=== PATIENT | male | born 1935 | race Caucasian/White ===

== ENCOUNTER → 2016-05-03 | Outpatient (CLI) | payer MEDICARE, BC | LOC: GMAH 12:25 | PROVIDERS: ATTEND Family Medicine | DX: E78.2 Mixed hyperlipidemia (principal); Z12.5 Encounter for screening for malignant neoplasm of prostate | CPT/HCPCS: 84443; 84550; G0103 ==

== ENCOUNTER 2016-08-15 18:44 | Emergency (ER) | payer MEDICARE, BC ==
[2016-08-15] MEDS ORDERED: IPRATROPIUM/ALBUTEROL 3 ML VIAL NEB ONE (19:15)
[2016-08-15 19:21] VITALS: BP 135/75; TEMP 98.7
--- NOTE | 2016-08-15 20:03 | RAD ---
EXAM: Two view chest. INDICATION: Chest pain. COMPARISON: Chest x-ray: 03/13/2016. FINDINGS: Cardiac silhouette: Unremarkable. Radha: Unremarkable. Lobar consolidation: None. Pleural effusion: None. Pneumothorax: None. Other: None. Bones: Unremarkable. Other: None. IMPRESSION: 1. No acute cardiopulmonary process. Electronically signed by: Chuck Quintero MD 08/15/2016 8:02 PM CDT
[2016-08-15] MEDS ORDERED: HYDROcodone 10MG/APAP 325MG 1 EA TAB PO ONE (20:56)
[2016-08-15] MEDS ORDERED: levoFLOXacin 500 MG TAB PO ONE (21:03)
[2016-08-15] MEDS ORDERED: predniSONE 20 MG TAB PO ONE (21:03)
--- NOTE | 2016-08-15 21:15 | ED.PDOC ---
History of Present Illness - General Chief Complaint: Headache Stated Complaint: cough, congestion, sinus, headache for 4 wks Time Seen by Provider: 08/15/16 19:10 Source: patient Exam Limitations: no limitations - History of Present Illness Initial Comments: the patient is an 81-year-old male presenting to the emergency room secondary to persistent cough and sinus pressure. He reports that he's had a cough for at least a month and has undergone a round of antibiotics with clarithromycin and received a steroid shot at the start of it. He does have a known history of COPD and does take breathing treatments. He is not oxygen dependent. His cough is minimally productive. He has no chest pain. He has had no fevers. He has no shortness of breath except when he is coughing. No syncope or near-syncope. No chest pain. Timing/Duration: constant Severity: moderate Improving Factors: nothing Worsening Factors: nothing Associated Symptoms: malaise Allergies/Adverse Reactions: Allergies NO KNOWN ALLERGY Allergy (Verified 08/15/16 19:21) Home Medications: Ambulatory Orders Aspirin [Baby Aspirin] 81 mg PO DAILY 03/13/16 Atorvastatin Calcium [Lipitor] 40 mg PO BEDTIME 03/13/16 Clopidogrel Bisulfate [Plavix] 75 mg PO DAILY 03/13/16 Lisinopril 20 mg PO DAILY 03/13/16 Montelukast Sodium [Singulair] 10 mg PO DAILY #14 tab 08/15/16 levoFLOXacin [Levaquin] 500 mg PO DAILY #10 tab 08/15/16 predniSONE [Prednisone] 20 mg PO DAILY #5 tab 08/15/16 Review of Systems - Review of Systems Constitutional: States: malaise EENTM: States: nose congestion Respiratory: States: cough Cardiology: States: no symptoms reported Gastrointestinal/Abdominal: States: no symptoms reported Genitourinary: States: no symptoms reported Musculoskeletal: States: no symptoms reported Skin: States: no symptoms reported Neurological: States: no symptoms reported Endocrine: States: no symptoms reported Hematologic/Lymphatic: States: no symptoms reported All other Systems: No Change from Baseline Past Medical History (General) - Patient Medical History Hx Seizures: No Hx Stroke: No Hx Dementia: No Hx Asthma: No Hx of COPD: No Hx Cardiac Disorders: No Hx Congestive Heart Failure: No Hx Pacemaker: No Hx Hypertension: Yes Hx Thyroid Disease: No Hx Diabetes: No Hx Gastroesophageal Reflux: No Hx Renal Disease: No Hx Cancer: No Hx of HIV: No Hx Hepatitis C: No Hx MRSA: No Surgical History: other - Vaccination History Hx Tetanus, Diphtheria Vaccination: No Hx Influenza Vaccination: No Hx Pneumococcal Vaccination: Yes Immunizations Up to Date: No - Social History Hx Tobacco Use: No Hx Chewing Tobacco Use: No Hx Alcohol Use: No Hx Substance Use: No Hx Substance Use Treatment: No Hx Depression: No Feels Threatened In Home Enviroment: No Feels Threatened In a Relationship: No Hx Physical Abuse: No Hx Emotional Abuse: No Hx Suspected Abuse: No Family Medical History - Family History Mother Family History: No Known Living Status: Physical Exam - Physical Exam General Appearance: Alert, Comfortable, No apparent distress Eye Exam: bilateral normal Ears, Nose, Throat: nasal congestion, other - the patient has pressure over bilateral maxillary sinuses. Nares are red with clear rhinorrhea and there is significant edema Neck: non-tender, full range of motion, supple, normal inspection Respiratory: chest non-tender, lungs clear, normal breath sounds, no respiratory distress, no accessory muscle use Cardiovascular/Chest: normal peripheral pulses, no edema, other - regular rate Peripheral Pulses: radial,right: 2+, radial,left: 2+ Gastrointestinal/Abdominal: non tender, soft Back Exam: normal inspection, no CVA tenderness, no vertebral tenderness Extremity: normal range of motion, non-tender, normal inspection, no pedal edema , normal capillary refill Neurologic: alert, normal mood/affect, oriented x 3 Skin Exam: normal color Comments: Vital Signs - 24 hr 08/15/16 08/15/16 19:00 19:16 Temperature 98.7 F Pulse Rate [ 66 monitor] Respiratory 18 18 Rate Blood Pressure 135/75 [Left Arm] O2 Sat by Pulse 96 Oximetry Progress - Progress Progress: 08/15/16 21:15 the patient is an 81-year-old male presenting with what appears to be acute on chronic bronchitis with bilateral maxillary sinusitis. The patient will be placed on prednisone 20 mg daily for 5 days. He needs to picking supervisor some [id number] Nasacort and use 1 spray per nostril twice a day. The patient is going to be placed on Levaquin 500 milligrams daily for 10 days. He needs to keep well hydrated. He needs to hold his cholesterol medication while taking this antibiotic. He is also going to be placed on Singulair 10 mg daily for 2 weeks. He needs to continue using his nebulizer treatments. He needs to keep his follow-up with his primary care doctor on Tuesday. He needs to return to the emergency room for any acute worsening. X-ray showed no evidence of pneumonia, only changes of COPD. Departure - Departure Disposition: Discharge to Home or Self Care Departure Forms: ED Discharge - Pt. Copy, Patient Portal Self Enrollment Referrals: Uriel Mota MD [Primary Care Provider] - 1-2 Weeks Prescriptions: levoFLOXacin [Levaquin] 500 mg PO DAILY #10 tab Montelukast Sodium [Singulair] 10 mg PO DAILY #14 tab predniSONE [Prednisone] 20 mg PO DAILY #5 tab Home Medications: Ambulatory Orders Aspirin [Baby Aspirin] 81 mg PO DAILY 03/13/16 Atorvastatin Calcium [Lipitor] 40 mg PO BEDTIME 03/13/16 Clopidogrel Bisulfate [Plavix] 75 mg PO DAILY 03/13/16 Lisinopril 20 mg PO DAILY 03/13/16 Montelukast Sodium [Singulair] 10 mg PO DAILY #14 tab 08/15/16 levoFLOXacin [Levaquin] 500 mg PO DAILY #10 tab 08/15/16 predniSONE [Prednisone] 20 mg PO DAILY #5 tab 08/15/16 Additional Instructions: the patient is an 81-year-old male presenting with what appears to be acute on chronic bronchitis with bilateral maxillary sinusitis. The patient will be placed on prednisone 20 mg daily for 5 days. He needs to picking supervisor some [id number] Nasacort and use 1 spray per nostril twice a day. The patient is going to be placed on Levaquin 500 milligrams daily for 10 days. He needs to keep well hydrated. He needs to hold his cholesterol medication while taking this antibiotic. He is also going to be placed on Singulair 10 mg daily for 2 weeks. He needs to continue using his nebulizer treatments. He needs to keep his follow-up with his primary care doctor on Tuesday. He needs to return to the emergency room for any acute worsening. X-ray showed no evidence of pneumonia, only changes of COPD.
[2016-08-15] MEDS ORDERED: MONTELUKAST SODIUM 10 MG TAB ONE (21:20)
[2016-08-15 22:29] VITALS: O2SAT 99
[2016-08-16] MEDS ORDERED: MONTELUKAST SODIUM 10 MG TAB PO ONE (21:03)
== END 2016-08-15 21:41 | disposition home or self-care (01) ==
LOC: ER 18:44
DX: J20.9 Acute bronchitis, unspecified (principal); J01.00 Acute maxillary sinusitis, unspecified; I10 Essential (primary) hypertension; Z79.82 Long term (current) use of aspirin; Z79.899 Other long term (current) drug therapy
CPT/HCPCS: 71020; 94640; J7512; J7620

== ENCOUNTER → 2016-11-18 | Outpatient (CLI) | payer MEDICARE, BC | END | disposition home or self-care (01) | LOC: GMAH 17:17 | PROVIDERS: ATTEND Family Medicine | DX: K92.1 Melena (principal) ==

== ENCOUNTER → 2016-12-06 | Outpatient (CLI) | payer MEDICARE, BC ==
--- NOTE | 2016-12-06 15:28 | CT ---
EXAM DESCRIPTION: Abdomen w/Contrast CLINICAL HISTORY: SPLENOMEGALY COMPARISON: None Available TECHNIQUE: CT of the abdomen only was performed with IV contrast. This exam was performed according to our departmental dose-optimization program, which includes automated exposure control, adjustment of the mA and/or kV according to patient size and/or use of iterative reconstruction technique. FINDINGS: There is some dependent atelectasis in the lung bases. No pneumoperitoneum, ascites or adenopathy. No abdominal aortic aneurysm. There is mild central intrahepatic biliary duct dilation. The liver contour is smooth, and there is no liver mass. No calcified gallstone or extra hepatic biliary duct dilation. The pancreatic duct is not dilated, and there is no mass or evidence of pancreatitis. The spleen is slightly enlarged, measuring up proximally 14 cm in length. There is a small left renal cyst. The kidneys and adrenals are otherwise unremarkable. Moderate amount of colonic stool and gas. No dilated small bowel loops. No concerning bone lesion. There are degenerative changes in the lumbar spine multiple levels. IMPRESSION: Splenomegaly without focal splenic lesion or ascites. Mild central intrahepatic biliary duct dilation, nonspecific. No calcified gallstone, but ultrasound may be helpful for further evaluation if clinically suspicious of biliary disease. No pancreatic mass or evidence of pancreatitis. Electronically signed by: Wilmer Kurtz MD 12/06/2016 3:27 PM CDT Workstation: [facility]
== END | disposition home or self-care (01) ==
LOC: CT 08:50
PROVIDERS: ATTEND Internal Medicine Hematology & Oncology
DX: R16.1 Splenomegaly, not elsewhere classified (principal)

== ENCOUNTER → 2016-12-30 | Outpatient (CLI) | payer MEDICARE, BC | END | disposition home or self-care (01) | LOC: GMAH 10:33 | PROVIDERS: ATTEND Family Medicine | DX: D47.3 Essential (hemorrhagic) thrombocythemia (principal); E53.8 Deficiency of other specified B group vitamins ==

== ENCOUNTER → 2017-03-28 | Outpatient (CLI) | payer MEDICARE, BC | END | disposition home or self-care (01) | LOC: GMAH 10:42 | PROVIDERS: ATTEND Family Medicine | DX: D47.3 Essential (hemorrhagic) thrombocythemia (principal); E53.8 Deficiency of other specified B group vitamins ==

== ENCOUNTER → 2018-01-12 | Outpatient (CLI) | payer MEDICARE, BC | LOC: GMAH 10:30 | PROVIDERS: ATTEND Family Medicine | DX: I10 Essential (primary) hypertension (principal); E78.2 Mixed hyperlipidemia; Z12.5 Encounter for screening for malignant neoplasm of prostate | CPT/HCPCS: 84443; 84550; G0103 ==

== ENCOUNTER → 2018-07-18 | Outpatient (CLI) | payer MEDICARE, BC | LOC: GMAH 10:48 | PROVIDERS: ATTEND Family Medicine | DX: E03.9 Hypothyroidism, unspecified (principal) ==

== ENCOUNTER → 2018-08-14 | Outpatient (CLI) | payer MEDICARE, BC | LOC: LAB.O 10:00 | PROVIDERS: ATTEND Internal Medicine Hematology & Oncology | DX: D45 Polycythemia vera (principal) ==

== ENCOUNTER → 2018-11-24 | Outpatient (CLI) | payer MEDICARE, BC | LOC: LAB.O 09:42 | PROVIDERS: ATTEND Internal Medicine Hematology & Oncology | DX: D75.1 Secondary polycythemia (principal); D47.3 Essential (hemorrhagic) thrombocythemia ==

== ENCOUNTER → 2018-12-25 | Outpatient (CLI) | payer MEDICARE, BC | LOC: LAB.O 09:09 | PROVIDERS: ATTEND Internal Medicine Hematology & Oncology | DX: D45 Polycythemia vera (principal) ==

== ENCOUNTER → 2019-01-16 | Outpatient (CLI) | payer MEDICARE, BC | LOC: GMA MATASK 10:45 | PROVIDERS: ATTEND Family Medicine | DX: E03.9 Hypothyroidism, unspecified (principal); E78.2 Mixed hyperlipidemia; I10 Essential (primary) hypertension; Z12.5 Encounter for screening for malignant neoplasm of prostate | CPT/HCPCS: 84443; 84550; G0103 ==

== ENCOUNTER → 2019-02-20 | Outpatient (CLI) | payer MEDICARE, BC | LOC: LAB.O 08:44 | PROVIDERS: ATTEND Internal Medicine Hematology & Oncology | DX: D75.1 Secondary polycythemia (principal); D47.3 Essential (hemorrhagic) thrombocythemia ==

== ENCOUNTER → 2019-04-20 | Outpatient (CLI) | payer BC, MEDICARE | LOC: LAB.O 12:04 | PROVIDERS: ATTEND Internal Medicine Hematology & Oncology | DX: D45 Polycythemia vera (principal) ==

== ENCOUNTER → 2019-08-20 | Outpatient (CLI) | payer MEDICARE, BC | LOC: LAB.O 08:45 | PROVIDERS: ATTEND Internal Medicine Hematology & Oncology | DX: D75.1 Secondary polycythemia (principal) ==

== ENCOUNTER → 2019-10-18 | Outpatient (CLI) | payer MEDICARE, BC | LOC: GMA MATASK 10:36 | PROVIDERS: ATTEND Family Medicine | DX: R97.20 Elevated prostate specific antigen [PSA] (principal); D47.3 Essential (hemorrhagic) thrombocythemia; E78.2 Mixed hyperlipidemia ==

== ENCOUNTER → 2019-12-21 | Outpatient (CLI) | payer MEDICARE, BC | LOC: LAB.O 09:00 | PROVIDERS: ATTEND Internal Medicine Hematology & Oncology | DX: D75.1 Secondary polycythemia (principal) ==

== ENCOUNTER 2020-05-26 12:16 | Emergency (ER) | payer MEDICARE, BC ==
[2020-05-26 12:37] VITALS: TEMP 99.3
[2020-05-26] MEDS ORDERED: SILVER SULFADIAZINE 1 % 25 GM TUBE TOP ONE (12:53)
[2020-05-26] MEDS ORDERED: TETANUS,DIPHTHERIA,PERTUSSIS 1 EA SYG IM ONE (13:00)
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
[2020-05-26 13:43] VITALS: BP 110/87; O2SAT 97
== END 2020-05-26 13:40 | disposition home or self-care (01) ==
LOC: ER 12:16
DX: T25.211A Burn of second degree of right ankle, initial encounter (principal); T31.0 Burns involving less than 10% of body surface; I10 Essential (primary) hypertension; X03.8XXA Other exposure to controlled fire, not in building or structure, initial encounter; Y92.9 Unspecified place or not applicable; Z79.82 Long term (current) use of aspirin; Z79.899 Other long term (current) drug therapy; Z23 Encounter for immunization

== ENCOUNTER 2020-06-06 11:00 | Emergency (ER) | payer MEDICARE, BC ==
[2020-06-06] MEDS ORDERED: SILVER SULFADIAZINE 1 % 25 GM TUBE TOP ONE (11:57)
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
--- NOTE | 2020-06-06 15:14 | ED.PDOC ---
History of Present Illness - General Chief Complaint: Trauma Stated Complaint: s/p fall,left rib pain Time Seen by Provider: 06/06/20 11:34 Source: patient Exam Limitations: no limitations - History of Present Illness Initial Comments: The patient is a 85-year-old male presented emergency room secondary to having tripped and fallen on asphalt yesterday. He landed and managed to injure his left anterior chest wall and he somehow hit the back of his head. No loss of consciousness. He does take a blood thinner. No pain elsewhere. He moves all extremities well and is able to ambulate in. Vital signs are stable. Timing/Duration: 24 hours Severity: moderate Improving Factors: immobilization Worsening Factors: movement Associated Symptoms: chest pain Allergies/Adverse Reactions: Allergies NO KNOWN ALLERGY Allergy (Verified 05/26/20 12:40) Home Medications: Ambulatory Orders Atorvastatin Calcium [Lipitor] 40 mg PO BEDTIME 03/13/16 Clopidogrel Bisulfate [Plavix] 75 mg PO DAILY 03/13/16 levoFLOXacin [Levaquin] 500 mg PO DAILY #10 tab 08/15/16 HYDROcodone 5MG/APAP 325MG [Mccamey 5/325] 1 tablet PO Q6H 4 Days #16 tab 05/26/20 SILVER SULFADIAZINE 1 % 25gm [Silvadene Cream 25gm] 1 applic TOP BID #1 tube 05/26/20 Egxjykbalxiqu-Yirc-Akyoukbnmk [Fioricet] 1 ea PO Q8H PRN #21 tab 06/06/20 Cilostazol 100 mg PO DAILY 06/06/20 Famotidine [Pepcid Tab] 20 mg PO DAILY 06/06/20 Hydroxyurea 500 mg PO DAILY 06/06/20 Levothyroxine Sodium 50 mcg PO DAILY 06/06/20 Lisinopril & Hydrochlorothiazi [Lisinopril/Hydrochlorothi 20-25 mg] 1 tab PO DAILY 06/06/20 Tramadol HCl 50 mg PO Q8HR PRN 3 Days #10 tab 06/06/20 Review of Systems - Review of Systems Constitutional: States: no symptoms reported EENTM: States: no symptoms reported Respiratory: States: no symptoms reported Cardiology: States: chest pain Gastrointestinal/Abdominal: States: no symptoms reported Genitourinary: States: no symptoms reported Musculoskeletal: States: see HPI Skin: States: no symptoms reported Neurological: States: headache Endocrine: States: no symptoms reported All other Systems: No Change from Baseline Past Medical History (General) - Patient Medical History Hx Seizures: No Hx Stroke: No Hx Dementia: No Hx Asthma: No Hx of COPD: No Hx Cardiac Disorders: No Hx Congestive Heart Failure: No Hx Pacemaker: No Hx Hypertension: Yes Hx Thyroid Disease: No Hx Diabetes: No Hx Gastroesophageal Reflux: No Hx Renal Disease: No Hx Cancer: No Hx of HIV: No Hx Hepatitis C: No Hx MRSA: No - Vaccination History Hx Tetanus, Diphtheria Vaccination: No Hx Influenza Vaccination: Yes Hx Pneumococcal Vaccination: Yes - Social History Hx Tobacco Use: No Hx Chewing Tobacco Use: Yes Hx Alcohol Use: No Hx Substance Use: No Hx Substance Use Treatment: No Hx Depression: No Hx Physical Abuse: No Hx Emotional Abuse: No Hx Suspected Abuse: No Family Medical History - Family History Mother Family History: No Known Living Status: Physical Exam - Physical Exam General Appearance: Alert, Comfortable, No apparent distress, Other - No scalp hematoma is found. No lacerations. Eye Exam: bilateral normal Ears, Nose, Throat: hearing grossly normal, normal pharynx Neck: non-tender, full range of motion, supple Respiratory: lungs clear, normal breath sounds, no respiratory distress, no accessory muscle use, other - Anterior left chest wall is tender to palpation. No crepitus. No bruising. He does have mild gottlieb from a heat pad to the lower left anterior chest wall. These are very superficial. 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 Dressing was changed after the wound was cleaned. Comments: Vital Signs - 24 hr 06/06/20 06/06/20 06/06/20 11:34 12:10 12:56 Temperature 99 F Pulse Rate [ 75 66 Left Brachial] Respiratory 16 20 20 Rate Blood Pressure 124/73 117/62 [Left Arm] O2 Sat by Pulse 98 99 Oximetry 06/06/20 14:59 Temperature Pulse Rate [ 75 Left Brachial] Respiratory 20 Rate Blood Pressure 126/72 [Left Arm] O2 Sat by Pulse 98 Oximetry Progress - Progress Progress: 06/06/20 15:15 The patient is an 85-year-old male presented emergency room after a fall yesterday. He said appears to have sustained a left anterior sixth rib fracture. No evidence of underlying lung pathology and no pneumothorax. He is going to have pain from the area for several weeks no doubt. He does need to take big deep breaths to prevent fluid from collecting and putting him at risk for pneumonia. 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 He also needs follow-up with his primary care doctor for his third of the right lateral ankle wound. I would be surprised if this event does not require a skin graft. He will be written for fioricet to help control discomfort from the rib fracture however Motrin or Aleve will likely work just as well. He does need to take MiraLAX daily if he is taking the tramadol. Keep well-hydrated. Encourage physical activity. ER warnings are given. aranza sanchez [phone] 06/06/20 15:20 - Results/Orders Results/Orders: CT scan of the head shows no evidence of acute pathology. Chronic changes are present. CT scan of the chest abdomen pelvis without contrast showing nondisplaced anterior left diagonal sixth rib fracture. He has bilateral atelectasis. He has chronic focal pleural nodules with calcification. No pneumothorax or significant pulmonary contusion. He does have significant scarring. Departure - Departure Clinical Impression: Fall at home Qualifiers: Encounter type: initial encounter Qualified Code(s): W19.XXXA - Unspecified fall, initial encounter; Y92.009 - Unspecified place in unspecified non- institutional (private) residence as the place of occurrence of the external cause Fracture of single rib Qualifiers: Encounter type: initial encounter Fracture type: closed Laterality: left Qualified Code(s): S22.32XA - Fracture of one rib, left side, initial encounter for closed fracture Disposition: Discharge to Home or Self Care Condition: Fair Departure Forms: ED Discharge - Pt. Copy, Patient Portal Self Enrollment Diet: regular diet Activity: increase activity as tolerated Referrals: Korey Serrano MD [Primary Care Provider] - 1-5 Days Prescriptions: Tramadol HCl 50 mg PO Q8HR PRN 3 Days #10 tab PRN Reason: Moderate Pain Oafdoyzrhukbf-Kvxo-Cgpvbqhhca [Fioricet] 1 ea PO Q8H PRN #21 tab PRN Reason: Pain Home Medications: Ambulatory Orders Atorvastatin Calcium [Lipitor] 40 mg PO BEDTIME 03/13/16 Clopidogrel Bisulfate [Plavix] 75 mg PO DAILY 03/13/16 levoFLOXacin [Levaquin] 500 mg PO DAILY #10 tab 08/15/16 HYDROcodone 5MG/APAP 325MG [Mccamey 5/325] 1 tablet PO Q6H 4 Days #16 tab 05/26/20 SILVER SULFADIAZINE 1 % 25gm [Silvadene Cream 25gm] 1 applic TOP BID #1 tube 05/26/20 Znlsfnaemopps-Zwjz-Kjwidgcvqi [Fioricet] 1 ea PO Q8H PRN #21 tab 06/06/20 Cilostazol 100 mg PO DAILY 06/06/20 Famotidine [Pepcid Tab] 20 mg PO DAILY 06/06/20 Hydroxyurea 500 mg PO DAILY 06/06/20 Levothyroxine Sodium 50 mcg PO DAILY 06/06/20 Lisinopril & Hydrochlorothiazi [Lisinopril/Hydrochlorothi 20-25 mg] 1 tab PO DAILY 06/06/20 Tramadol HCl 50 mg PO Q8HR PRN 3 Days #10 tab 06/06/20 Additional Instructions: The patient is an 85-year-old male presented emergency room after a fall yesterday. He said appears to have sustained a left anterior sixth rib fracture. No evidence of underlying lung pathology and no pneumothorax. He is going to have pain from the area for several weeks no doubt. He does need to take big deep breaths to prevent fluid from collecting and putting him at risk for pneumonia. 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 He also needs follow-up with his primary care doctor for his third of the right lateral ankle wound. I would be surprised if this event does not require a skin graft. He will be written for fioricet to help control discomfort from the rib fracture however Motrin or Aleve will likely work just as well. He does need to take MiraLAX daily if he is taking the tramadol. Keep well-hydrated. Encourage physical activity. ER warnings are given.
[2020-06-06 15:30] VITALS: BP 117/68; TEMP 99.9; O2SAT 97
== END 2020-06-06 15:30 | disposition home or self-care (01) ==
LOC: ER 11:00
DX: S22.32XA Fracture of one rib, left side, initial encounter for closed fracture (principal); T25.311A Burn of third degree of right ankle, initial encounter; X08.8XXA Exposure to other specified smoke, fire and flames, initial encounter; Y92.009 Unspecified place in unspecified non-institutional (private) residence as the place of occurrence of the external cause; W01.0XXA Fall on same level from slipping, tripping and stumbling without subsequent striking against object, initial encounter; Z79.01 Long term (current) use of anticoagulants; Z79.02 Long term (current) use of antithrombotics/antiplatelets; Z79.899 Other long term (current) drug therapy; Z87.891 Personal history of nicotine dependence

== ENCOUNTER → 2020-06-13 | Outpatient (CLI) | payer MEDICARE, BC | LOC: GMA MATASK 13:14 | PROVIDERS: ATTEND Family Medicine | DX: E53.8 Deficiency of other specified B group vitamins (principal); E03.9 Hypothyroidism, unspecified; T25.311A Burn of third degree of right ankle, initial encounter; I10 Essential (primary) hypertension; R97.20 Elevated prostate specific antigen [PSA]; E78.2 Mixed hyperlipidemia ==